=== PATIENT | male | born 1950 | race Caucasian/White ===

== ENCOUNTER 2017-08-01 14:22 | Emergency (ER) | payer OTHER ==
[2017-08-01] MEDS: CEFAZOLIN 1 GM/50 ML (PMX) 50 ML IVPB (15:09)
[2017-08-01] MEDS: morphine 4 MG/ML VIAL IV (15:09)
[2017-08-01] MEDS: DIPHTH/TET/ACEL PERTUSS (ADULT) 0.5 ML VIAL IM* (15:11)
[2017-08-01 15:29] LABS: ADD MAN DIFF? NO
[2017-08-01 15:31] LABS: WHITE BLOOD COUNT 8.9 10^3/ul (4.8-10.8)
[2017-08-01 15:31] LABS: BASOPHILS % 0.3 % (0.0-2.0); EOSINOPHILS # 0.1 10^3/ul (0.0-0.5); EOSINOPHILS % 1.1 % (0.0-7.0); HEMATOCRIT 42.4 % (42.0-52.0); HEMOGLOBIN 14.5 g/dl (14.0-18.0); LYMPHOCYTES # 2.4 10^3/ul (0.8-2.9); LYMPHOCYTES % 27.4 % (15.0-51.0); MEAN CORPUSCULAR HEMOGLOBIN 30.7 pg (29.0-33.0); MEAN CORPUSCULAR HGB CONC 34.2 g/dl (32.0-37.0); MEAN CORPUSCULAR VOLUME 89.6 fl (82.0-101.0); MEAN PLATELET VOLUME 10.4 fl (7.4-10.4); MONOCYTE # 0.7 10^3/ul (0.3-0.9); MONOCYTES % 7.3 % (0.0-11.0); NEUTROPHIL # 5.7 10^3/ul (1.6-7.5); NEUTROPHILS % 63.8 % (39.0-77.0); PLATELET COUNT 207 10^3/UL (140-415); RED BLOOD COUNT 4.73 10^6/ul (4.70-6.10); RED CELL DISTRIBUTION WIDTH 13.5 % (11.5-14.5)
[2017-08-01] MEDS: HYDROmorphONE 1 MG/5 ML IV SYRINGE IV ×2 (15:40→19:56)
[2017-08-01 16:00] LABS: ALANINE AMINOTRANSFERASE 30 IU/L (13-69); ALBUMIN 4.5 g/dl (3.3-4.9); ALBUMIN/GLOBULIN RATIO 1.36; ALKALINE PHOSPHATASE 109 IU/L (42-121); ANION GAP 14 (8-16); ASPARTATE AMINO TRANSFERASE 28 IU/L (15-46); BILIRUBIN,INDIRECT 0.5 mg/dl (0-1.1); BILIRUBIN,TOTAL 0.5 mg/dl (0.2-1.3); BLOOD UREA NITROGEN 20 mg/dl (7-20); CALCIUM 9.2 mg/dl (8.4-10.2); CARBON DIOXIDE 27 mmol/L (21-31); CHLORIDE 105 mmol/L (97-110); CREATININE 1.04 mg/dl (0.61-1.24); GLUCOSE 118 mg/dl (70-220); POTASSIUM 4.1 mmol/L (3.5-5.1); SODIUM 142 mmol/L (135-144); TOTAL PROTEIN 7.8 g/dl (6.1-8.1)
[2017-08-01 16:03] LABS: INR 0.94; PARTIAL THROMBOPLASTIN TIME 30.6 Sec (25.0-35.0); PROTIME 12.7 Sec (11.9-14.9)
[2017-08-01] MEDS: morphine 2 MG INJ IM (19:59)
== END 2017-08-01 20:00 | disposition short-term general hospital (02) ==
LOC: FTE 14:22
DX: S61.211A Laceration without foreign body of left index finger without damage to nail, initial encounter (principal); S61.213A Laceration without foreign body of left middle finger without damage to nail, initial encounter; W26.8XXA Contact with other sharp object(s), not elsewhere classified, initial encounter; Y92.9 Unspecified place or not applicable; Z79.01 Long term (current) use of anticoagulants; Z23 Encounter for immunization
CPT/HCPCS: 29130; 36415; 73130-LT; 80053; 85025; 85610; 85730; 90471; 90715; 96374; 96375; 99285-25